=== PATIENT | male | born 1960 | race Caucasian/White ===

== ENCOUNTER 2025-07-28 09:59 | Inpatient (IN) | payer MEDICARE, MEDICAID ==
[~2025-07-28] VITALS: Ht 152.4 cm; Wt 89.9 kg
[2025-07-28] MEDS ORDERED: HEPARIN 100 UNITS/1 ML VIAL IVF ONE (11:00)
[2025-07-28] MEDS: ASPIRIN 325MG EC TABLET PO ONE (11:02)
[2025-07-28 11:13] LABS: BASOPHILS % 0.3 % (0.0-2.0); EOSINOPHILS % 0.5 % (0.0-5.0); HEMATOCRIT. 43.5 % (42.0-52.0); HEMOGLOBIN. 14.9 g/dL (14.0-18.0); LYMPHOCYTES % 14.4 % (20.0-50.0); MEAN PLATELET VOLUME 7.8 fl (7.4-10.4); MONOCYTES % 5.7 % (2.0-8.0); NEUTROPHILS % 79.1 % (40.0-76.0); PLATELET 269 x1000/uL (130-400); RED BLOOD CELL COUNT 4.78 mill/uL (4.7-6.1); RED CELL DISTRIBUTION WIDTH 13.1 % (11.6-14.6)
[2025-07-28] MEDS: HEPARIN 5000 UNITS/ML VIAL IV SCH (11:27)
[2025-07-28] MEDS: CLOPIDOGREL 75MG TABLET PO ONE (11:27)
[2025-07-28] MEDS: NITROGLYCERIN OINT 1GM/INCH UDPKT TD ONE (11:27)
[2025-07-28 11:30] LABS: CREATININE 1.1 mg/dL (0.6-1.3)
[2025-07-28 11:31] LABS: UREA NITROGEN BLOOD 15 mg/dL (9-23)
[2025-07-28 11:48] LABS: TROPONIN I HIGH SENSITIVITY 2007 ng/L (3.0-53)
[2025-07-28 12:58] LABS: TROPONIN I HIGH SENSITIVITY 9127 ng/L (3.0-53)
[2025-07-28] MEDS: MORPHINE SULFATE 10 MG/ML INJ (NOT FOR IM USE) IV ONE (15:11)
[2025-07-28 16:00] VITALS: BP 110/68; PULSE 78; RESP 18; TEMP 36.5; O2SAT 100
[2025-07-28] MEDS ORDERED: LOSA50TA41 PO (16:19)
[2025-07-28] MEDS ORDERED: HYDR25TA PO (16:19)
[2025-07-28] MEDS ORDERED: HEPARIN 25,000 UNITS PREMIX 250 ML IV PRN (16:30)
[2025-07-28] MEDS ORDERED: ONDANSETRON HCL 4MG/2ML INJ IV PRN (16:30)
[2025-07-28 16:50] VITALS: BP 110/68; PULSE 78; RESP 18; TEMP 36.5292
[2025-07-28] MEDS: ASPIRIN 81MG TABLET PO SCH (17:47)
[2025-07-28 18:44] LABS: TRIGLYCERIDE 225 mg/dL (0-150)
[2025-07-28 18:45] LABS: LDL CHOLESTEROL 131 mg/dL (5-100)
[2025-07-28 18:46] LABS: INR 1.0
[2025-07-28 18:49] LABS: T4 FREE 1.23 ng/dL (0.89-1.76)
[2025-07-28 18:59] LABS: TROPONIN I HIGH SENSITIVITY 45292 ng/L (3.0-53)
[2025-07-28] MEDS: HEPARIN 25,000 UNITS PREMIX 250 ML IV SCH (19:24)
[2025-07-28] MEDS: ACETAMINOPHEN 325MG TABLET PO PRN (19:38)
[2025-07-28 20:00] VITALS: BP_SYST 127; BP_SYST 128; BP_DIAS 65; BP_DIAS 74; PULSE 74; PULSE 76; RESP 17; RESP 19; TEMP 36.4; TEMP 36.7; O2SAT 97; O2SAT 98
[2025-07-28] MEDS: ATORVASTATIN CALCIUM 40MG TABLET PO SCH (21:23)
[2025-07-29 04:00] VITALS: BP 108/68; PULSE 68; RESP 17; TEMP 36.9; O2SAT 97
[2025-07-29] MEDS: HEPARIN BOLUS PRN aPTT <30 IV (04:04)
[2025-07-29 07:15] LABS: BASOPHILS % 0.2 % (0.0-2.0); EOSINOPHILS % 0.6 % (0.0-5.0); HEMATOCRIT. 44.6 % (42.0-52.0); HEMOGLOBIN. 15.3 g/dL (14.0-18.0); LYMPHOCYTES % 17.0 % (20.0-50.0); MEAN PLATELET VOLUME 8.0 fl (7.4-10.4); MONOCYTES % 7.9 % (2.0-8.0); NEUTROPHILS % 74.3 % (40.0-76.0); PLATELET 258 x1000/uL (130-400); RED BLOOD CELL COUNT 4.92 mill/uL (4.7-6.1); RED CELL DISTRIBUTION WIDTH 13.0 % (11.6-14.6)
[2025-07-29 07:47] LABS: CREATININE 1.0 mg/dL (0.6-1.3)
[2025-07-29 07:48] LABS: UREA NITROGEN BLOOD 10 mg/dL (9-23)
[2025-07-29 08:00] VITALS: BP 128/68; PULSE 90; RESP 20; TEMP 37.2; O2SAT 99
[2025-07-29 08:21] LABS: CLARITY URINE CLEAR (CLEAR); COLOR URINE YELLOW (YELLOW); GLUCOSE URINE NEGATIVE (NEGATIVE); KETONES URINE NEGATIVE (NEGATIVE); LEUKOCYTE ESTERASE URINE NEGATIVE (NEGATIVE); NITRITE URINE NEGATIVE (NEGATIVE); OCCULT BLOOD URINE NEGATIVE (NEGATIVE); PH URINE 7.5 (4.5-8.0); PROTEIN URINE NEGATIVE (NEGATIVE); SPECIFIC GRAVITY URINE 1.015 (1.005-1.030); UROBILINOGEN URINE 1.0 E.U./dL (0.2-1.0)
[2025-07-29 08:37] LABS: *AMPHETAMINES SCREEN URINE NEGATIVE (NEGATIVE); *BARBITURATES SCREEN URINE NEGATIVE (NEGATIVE); *BENZODIAZEPINES SCREEN URINE NEGATIVE (NEGATIVE); *COCAINE SCREEN URINE NEGATIVE (NEGATIVE); CANNABINOID URINE SCREEN NEGATIVE (NEGATIVE); ECSTASY MDMA SCREEN URINE NEGATIVE (NEGATIVE); METHADONE URINE SCREEN NEGATIVE (NEGATIVE); OPIATES URINE SCREEN NEGATIVE (NEGATIVE); PHENCYCLIDINE URINE SCREEN NEGATIVE (NEGATIVE)
[2025-07-29] MEDS: COLCHICINE 0.6MG TABLET PO SCH (09:39)
[2025-07-29] MEDS: PANTOPRAZOLE SODIUM 40 MG/VIAL IV SCH (09:39)
[2025-07-29] MEDS: LOSARTAN 50 MG TABLET PO SCH (09:40)
[2025-07-29] MEDS: HYDROCHLOROTHIAZIDE 25MG TABLET PO SCH (09:40)
[2025-07-29 12:00] VITALS: BP 126/73; PULSE 101; RESP 30; TEMP 37.2; O2SAT 97
[2025-07-29] MEDS: HYDROCODONE/ACETAMINOPHEN 5/325MG TABLET PO NR (13:08)
[2025-07-29 16:00] VITALS: BP 108/53; PULSE 100; RESP 27; TEMP 38.2; O2SAT 95
[2025-07-29] MEDS: ACETAMINOPHEN 325MG TABLET PO PRN (17:08)
[2025-07-29] MEDS: HEPARIN BOLUS PRN aPTT 30-44 IV (19:22)
[2025-07-29 20:16] VITALS: BP 103/69; PULSE 92; RESP 20; TEMP 37.9; O2SAT 94
[2025-07-30 00:17] VITALS: BP 112/68; PULSE 88; RESP 23; TEMP 37.3; O2SAT 97
[2025-07-30 04:00] VITALS: BP 112/79; PULSE 81; RESP 16; TEMP 36.9; O2SAT 97
[2025-07-30] MEDS: HYDROCODONE/ACETAMINOPHEN 10/325MG TABLET PO PRN (06:38)
[2025-07-30 08:00] VITALS: BP 113/76; PULSE 87; RESP 19; TEMP 36.8; O2SAT 97
[2025-07-30] MEDS ORDERED: IODIXANOL 320MG/ML 100 ML BOTTLE IV ONE (08:24)
[2025-07-30] MEDS ORDERED: LIDOCAINE HCL 1% 20ML VIAL ONE (08:28)
[2025-07-30] MEDS ORDERED: HEPARIN 1000 UNITS/ML 10ML ONE (08:28)
[2025-07-30] MEDS ORDERED: VERAPAMIL HCL 2.5 MG/1 ML 2ML VIAL IV ONE (08:30)
[2025-07-30 08:40] LABS: BASOPHILS % 0.3 % (0.0-2.0); EOSINOPHILS % 0.1 % (0.0-5.0); HEMATOCRIT. 45.7 % (42.0-52.0); HEMOGLOBIN. 15.4 g/dL (14.0-18.0); LYMPHOCYTES % 16.5 % (20.0-50.0); MEAN PLATELET VOLUME 7.9 fl (7.4-10.4); MONOCYTES % 7.8 % (2.0-8.0); NEUTROPHILS % 75.3 % (40.0-76.0); PLATELET 240 x1000/uL (130-400); RED BLOOD CELL COUNT 5.03 mill/uL (4.7-6.1); RED CELL DISTRIBUTION WIDTH 13.4 % (11.6-14.6)
[2025-07-30 08:52] LABS: CREATININE 1.2 mg/dL (0.6-1.3)
[2025-07-30 08:53] LABS: UREA NITROGEN BLOOD 13 mg/dL (9-23)
[2025-07-30] MEDS ORDERED: FENTANYL CITRATE/PF 50MCG/ML 2ML VIAL ONE (09:23)
[2025-07-30] MEDS ORDERED: MIDAZOLAM HCL 2 MG/2 ML VIAL ONE (09:23)
[2025-07-30] MEDS ORDERED: DIPHENHYDRAMINE 50MG/ML VIAL ONE (09:44)
[2025-07-30] MEDS ORDERED: ATROPINE SULFATE 1MG/10ML SYR IV PRN (10:45)
[2025-07-30] MEDS ORDERED: NALOXONE HCL 0.4MG/ML VIAL IV PRN (10:45)
[2025-07-30 12:00] VITALS: BP 118/84; PULSE 78; RESP 19; TEMP 36.9; O2SAT 98
[2025-07-30] MEDS: KCL 20MEQ/100ML PREMIX 100 ML IV SCH (12:51)
[2025-07-30 16:00] VITALS: BP 118/76; PULSE 92; RESP 20; TEMP 36.7; O2SAT 97
[2025-07-30] MEDS: POTASSIUM CHLORIDE 20MEQ TABLET SR PO SCH (16:53)
[2025-07-30] MEDS: ENOXAPARIN 100MG/ML SYR SUBCUT SCH (19:45)
[2025-07-30 20:00] VITALS: BP 111/78; PULSE 94; RESP 17; TEMP 37.2; O2SAT 97
[2025-07-30 22:14] LABS: INR 1.1
[2025-07-31] VITALS (7 sets, daily range): BP systolic 110–132; BP diastolic 73–86; PULSE 79–93; RESP 15–21; TEMP 36.6–37.4; O2SAT 95–99
[2025-07-31 06:41] LABS: BASOPHILS % 0.3 % (0.0-2.0); EOSINOPHILS % 1.2 % (0.0-5.0); HEMATOCRIT. 44.9 % (42.0-52.0); HEMOGLOBIN. 15.5 g/dL (14.0-18.0); LYMPHOCYTES % 21.9 % (20.0-50.0); MEAN PLATELET VOLUME 7.5 fl (7.4-10.4); MONOCYTES % 10.6 % (2.0-8.0); NEUTROPHILS % 66.0 % (40.0-76.0); PLATELET 249 x1000/uL (130-400); RED BLOOD CELL COUNT 4.95 mill/uL (4.7-6.1); RED CELL DISTRIBUTION WIDTH 13.0 % (11.6-14.6)
[2025-07-31 06:53] LABS: CREATININE 1.1 mg/dL (0.6-1.3); UREA NITROGEN BLOOD 15 mg/dL (9-23)
[2025-07-31] MEDS ORDERED: HEPARIN 25,000 UNITS PREMIX 250 ML IV SCH (07:00)
[2025-07-31] MEDS: FAMOTIDINE 20MG/2ML VIAL IV SCH (09:14)
[2025-07-31] MEDS: ENOXAPARIN 100MG/ML SYR SUBCUT SCH (09:14)
[2025-07-31] MEDS: POTASSIUM CHLORIDE 20MEQ TABLET SR PO NR (09:55)
[2025-08-01 00:10] VITALS: BP 118/71; PULSE 82; RESP 19; TEMP 37; O2SAT 94
[2025-08-01 03:51] VITALS: BP 106/72; PULSE 77; RESP 19; TEMP 36.6; O2SAT 97
[2025-08-01 07:59] VITALS: BP 111/62; PULSE 76; RESP 17; TEMP 36.8; O2SAT 93
[2025-08-01 12:00] VITALS: BP 120/80; PULSE 90; RESP 20; TEMP 36.9; O2SAT 96
[2025-08-01 16:00] VITALS: BP 127/84; PULSE 96; RESP 20; TEMP 36.7; O2SAT 96
[2025-08-01] MEDS: DEXT 5%/0.45% NACL KCL 20MEQ/L 1,000 ML IV SCH (19:09)
[2025-08-01 20:00] VITALS: RESP 22; TEMP 36.6; O2SAT 95
[2025-08-01] MEDS: CHLORHEXIDINE GLUCONATE 4% EXTERNAL USE TOP SCH (21:43)
[2025-08-01 21:56] LABS: BASOPHILS % 0.3 % (0.0-2.0); EOSINOPHILS % 3.0 % (0.0-5.0); HEMATOCRIT. 45.2 % (42.0-52.0); HEMOGLOBIN. 15.6 g/dL (14.0-18.0); LYMPHOCYTES % 27.2 % (20.0-50.0); MEAN PLATELET VOLUME 7.9 fl (7.4-10.4); MONOCYTES % 10.8 % (2.0-8.0); NEUTROPHILS % 58.7 % (40.0-76.0); PLATELET 349 x1000/uL (130-400); RED BLOOD CELL COUNT 5.02 mill/uL (4.7-6.1); RED CELL DISTRIBUTION WIDTH 12.8 % (11.6-14.6)
[2025-08-01 22:14] LABS: CREATININE 1.1 mg/dL (0.6-1.3)
[2025-08-01 22:15] LABS: UREA NITROGEN BLOOD 12 mg/dL (9-23)
[2025-08-02] VITALS (25 sets, daily range): BP systolic 102–130; BP diastolic 53–90; PULSE 76–101; RESP 0–29; TEMP 35.8–37.3; O2SAT 89–99
[2025-08-02] MEDS ORDERED: AMINOCAPROIC ACID 5,000 MG in SODIUM CHLORIDE 0.9% 250 ML IV PRN (05:00)
[2025-08-02] MEDS ORDERED: NICARDIPINE 50 MG in NS 250 ML IV PRN (05:00)
[2025-08-02] MEDS ORDERED: DEL NIDO CARDIOPLEGIA 1,000 ML (PREMIX) IV SCH (05:00)
[2025-08-02] MEDS ORDERED: NOREPINEPHRINE 8 MG in DEXT 5% WATER 250 ML IV PRN (05:00)
[2025-08-02] MEDS ORDERED: DOBUTAMINE 250 MG/250 ML PREMIX IV PRN (05:00)
[2025-08-02] MEDS ORDERED: DEL NIDO CARDIOPLEGIA 1,000 ML (PREMIX) IV PRN (05:00)
[2025-08-02] MEDS ORDERED: PAPAVERINE HCL 180MG in SODIUM CHLORIDE 0.9% 24ML IV PRN (05:00)
[2025-08-02] MEDS ORDERED: EPINEPHRINE 5 MG in DEXT 5% WATER 250 ML IV PRN (05:00)
[2025-08-02] MEDS ORDERED: NOREPINEPHRINE 8MG/250ML PMX 250ML IV PRN (05:00)
[2025-08-02] MEDS ORDERED: NICARDIPINE 40 MG/200 ML PREMIX 200 ML IV PRN (05:00)
[2025-08-02] MEDS: CEFAZOLIN 2,000 MG in DEXT 5% WATER 100 ML IV SCH (05:00)
[2025-08-02] MEDS: VANCOMYCIN 1 G/200 ML PREMIX IV SCH (05:00)
[2025-08-02] MEDS ORDERED: POLYMYXIN B SULFATE 500000 UNITS/VIAL ONE (06:17)
[2025-08-02] MEDS ORDERED: THROMBIN (BOVINE) 5000 UNITS/VIAL TOP ONE (06:17)
[2025-08-02] MEDS ORDERED: SKIN ADHESIVE 0.7 GM EA TOP ONE (06:17)
[2025-08-02] MEDS ORDERED: NITROGLYCERIN 50MG PREMIX 250 ML IV ONE (06:23)
[2025-08-02] MEDS ORDERED: PROPOFOL 10MG/ML 100ML 100 ML IV ONE (06:31)
[2025-08-02] MEDS ORDERED: DEXMEDETOMIDINE 250 ML IV ONE (06:32)
[2025-08-02 06:35] LABS: BASOPHILS % 0.5 % (0.0-2.0); EOSINOPHILS % 3.6 % (0.0-5.0); HEMATOCRIT. 45.6 % (42.0-52.0); HEMOGLOBIN. 15.7 g/dL (14.0-18.0); LYMPHOCYTES % 30.9 % (20.0-50.0); MEAN PLATELET VOLUME 8.0 fl (7.4-10.4); MONOCYTES % 11.5 % (2.0-8.0); NEUTROPHILS % 53.5 % (40.0-76.0); PLATELET 312 x1000/uL (130-400); RED BLOOD CELL COUNT 5.07 mill/uL (4.7-6.1); RED CELL DISTRIBUTION WIDTH 12.8 % (11.6-14.6)
[2025-08-02 06:36] LABS: INR 1.1
[2025-08-02] MEDS ORDERED: PROPOFOL 200MG/20ML VIAL IV ONE (06:36)
[2025-08-02] MEDS: CHLORHEXIDINE GLUCONATE 4% EXTERNAL USE TOP SCH (06:36)
[2025-08-02] MEDS ORDERED: HEPARIN 1000 UNITS/ML 10ML ONE ×3 (06:36→10:12)
[2025-08-02] MEDS ORDERED: MIDAZOLAM HCL 2 MG/2 ML VIAL ONE ×2 (06:37→13:00)
[2025-08-02] MEDS ORDERED: LIDOCAINE HCL 1% 10 MG/ML 10ML VIAL ONE (06:37)
[2025-08-02] MEDS ORDERED: ESMOLOL HCL 10MG/ML 10ML VIAL IV ONE (06:37)
[2025-08-02] MEDS ORDERED: FENTANYL CITRATE/PF 50MCG/ML 5ML VIAL ONE (06:37)
[2025-08-02] MEDS ORDERED: AMINOCAPROIC ACID 250 MG/ML 20ML VIAL ONE ×2 (06:38→10:12)
[2025-08-02 06:41] LABS: CREATININE 1.1 mg/dL (0.6-1.3)
[2025-08-02 06:42] LABS: UREA NITROGEN BLOOD 14 mg/dL (9-23)
[2025-08-02 06:43] LABS: ASPARTATE AMINOTRANSFERASE 34 IU/L (<34)
[2025-08-02] MEDS ORDERED: ROCURONIUM BROMIDE 10MG/ML VIAL 5ML IV ONE ×2 (06:43→06:54)
[2025-08-02 06:44] LABS: BILIRUBIN TOTAL 0.8 mg/dL (0.1-1.0); PROTEIN TOTAL 7.2 g/dL (6.0-8.3)
[2025-08-02] MEDS ORDERED: SEVOFLURANE 250 ML LIQUID INH ONE (07:18)
[2025-08-02] MEDS ORDERED: LIDOCAINE HCL 2% 5ML SYRINGE IV ONE (10:12)
[2025-08-02] MEDS ORDERED: SODIUM BICARBONATE 8.4% 50MEQ/50ML SYR IV ONE (10:12)
[2025-08-02] MEDS ORDERED: PHENYLEPHRINE HCL 10MG/ML 1ML IV ONE (10:12)
[2025-08-02] MEDS ORDERED: MANNITOL 20% (20GM/100ML) BAG 500ML PREMIX IV ONE (10:12)
[2025-08-02] MEDS ORDERED: MAGNESIUM SULFATE 5GM/10ML VIAL IV ONE (10:12)
[2025-08-02] MEDS ORDERED: ALBUMIN HUMAN 25GM/100ML (25%) IV ONE (10:12)
[2025-08-02] MEDS ORDERED: POTASSIUM CHLORIDE 40MEQ/20ML INJ IV ONE (10:12)
[2025-08-02] MEDS ORDERED: CALCIUM CHLORIDE 1GM/10ML SYR IV ONE ×2 (10:12→10:15)
[2025-08-02] MEDS ORDERED: HEPARIN 10,000 UNITS/ML VIAL ONE (10:12)
[2025-08-02] MEDS ORDERED: FUROSEMIDE 20MG/2ML VIAL ONE (10:12)
[2025-08-02] MEDS ORDERED: ACETAMINOPHEN 1000MG/100ML 100 ML IV ONE (10:37)
[2025-08-02] MEDS ORDERED: PROTAMINE SULFATE 10MG/ML VIAL 25ML IV ONE ×2 (11:02→12:52)
[2025-08-02] MEDS ORDERED: CEFAZOLIN SODIUM 1000MG/VIAL ONE (12:08)
[2025-08-02] MEDS ORDERED: ALBUMIN HUMAN 12.5G/250ML (5%) IV ONE ×2 (13:35→14:15)
[2025-08-02] MEDS ORDERED: ONDANSETRON HCL 4MG/2ML INJ ONE (14:18)
[2025-08-02 14:47] LABS: HEMATOCRIT. 36.3 % (42.0-52.0); HEMOGLOBIN. 12.3 g/dL (14.0-18.0); MEAN PLATELET VOLUME 8.0 fl (7.4-10.4); PLATELET 199 x1000/uL (130-400); RED BLOOD CELL COUNT 4.02 mill/uL (4.7-6.1); RED CELL DISTRIBUTION WIDTH 12.7 % (11.6-14.6)
[2025-08-02 14:49] LABS: CREATININE 1.2 mg/dL (0.6-1.3)
[2025-08-02 14:50] LABS: UREA NITROGEN BLOOD 15 mg/dL (9-23)
[2025-08-02 14:51] LABS: ASPARTATE AMINOTRANSFERASE 49 IU/L (<34); PHOSPHORUS 2.9 mg/dL (2.5-4.9)
[2025-08-02 14:52] LABS: BILIRUBIN TOTAL 0.8 mg/dL (0.1-1.0); PROTEIN TOTAL 5.6 g/dL (6.0-8.3)
[2025-08-02] MEDS ORDERED: DEXTROSE 50% WATER 50ML SYRINGE IV PRN ×2 (15:00)
[2025-08-02] MEDS: BLOOD SUGAR DIAGNOSTIC STRIP TEST SCH (15:00)
[2025-08-02] MEDS ORDERED: DOPAMINE 400MG/250ML PREMIX 250 ML IV PRN (15:45)
[2025-08-02] MEDS: PROPOFOL 10MG/ML 100ML 100 ML IV PRN (15:47)
[2025-08-02] MEDS: DOPAMINE 400 MG PREMIX 250 ML IV PRN (15:48)
[2025-08-02] MEDS: DEXMEDETOMIDINE 100 ML IV PRN (15:48)
[2025-08-02] MEDS: INSULIN REGULAR 100U/100ML PMX 100 ML IV SCH ×2 (15:49→23:23)
[2025-08-02 15:54] LABS: BG BASE EXCESS 1.1 mmol/L (-2.0-3.0); BG CARBOXYHEMOGLOBIN 0.9 % (0.5-1.5); BG DEOXYHEMOGLOBIN 0.9 % (0.0-5.0); BG FRACTION INSPIRED OXYGEN 100; BG HCO3 ACT 24.9 mmol/L (21.0-28.0); BG METHEMOGLOBIN 0.1 % (0.5-1.5); BG OXYGEN SATURATION 99.1 % (94.0-98.0); BG OXYHEMOGLOBIN 98.1 % (94.0-98.0); BG PCO2 37.1 mmHg (35.0-48.0); BG PEEP (cmH2O) 5.0 cmH2O; BG PH 7.445 (7.350-7.450); BG PO2 207.1 mmHg (83.0-108.0); BG SAMPLE SITE ALINE; BG TIDAL VOLUME(mL) 550.0 mL; BG TOTAL HEMOGLOBIN 12.7 g/dL (13.5-17.5); BG VENT MODE VENT - AC; BG VENT RATE 16.0 set
[2025-08-02] MEDS ORDERED: CALCIUM CHLORIDE 3,000 MG in DEXT 5% WATER 250 ML IV PRN (16:30)
[2025-08-02] MEDS ORDERED: CALCIUM CHLORIDE 5,000 MG in DEXT 5% WATER 500 ML IV PRN (16:30)
[2025-08-02] MEDS ORDERED: SODIUM CHLORIDE 0.9% 500 ML IV PRN (16:30)
[2025-08-02] MEDS ORDERED: MAGNESIUM HYDROXIDE 400MG/5ML 30ML UDC PO PRN (16:30)
[2025-08-02] MEDS ORDERED: ALBUMIN HUMAN 25GM/100ML (25%) IV PRN (16:30)
[2025-08-02] MEDS ORDERED: ONDANSETRON HCL 4MG/2ML INJ IV PRN (16:30)
[2025-08-02] MEDS ORDERED: ALBUMIN HUMAN 12.5G/250ML (5%) IV PRN (16:30)
[2025-08-02 17:45] LABS: BG BASE EXCESS 1.3 mmol/L (-2.0-3.0); BG CARBOXYHEMOGLOBIN 1.0 % (0.5-1.5); BG DEOXYHEMOGLOBIN 2.1 % (0.0-5.0); BG FRACTION INSPIRED OXYGEN 40; BG HCO3 ACT 24.8 mmol/L (21.0-28.0); BG METHEMOGLOBIN 0.0 % (0.5-1.5); BG OXYGEN SATURATION 97.9 % (94.0-98.0); BG OXYHEMOGLOBIN 96.9 % (94.0-98.0); BG PCO2 35.5 mmHg (35.0-48.0); BG PEEP (cmH2O) 5.0 cmH2O; BG PH 7.462 (7.350-7.450); BG PO2 105.5 mmHg (83.0-108.0); BG SAMPLE SITE ALINE; BG TIDAL VOLUME(mL) 550.0 mL; BG TOTAL HEMOGLOBIN 12.7 g/dL (13.5-17.5); BG VENT MODE VENT - AC; BG VENT RATE 16.0 set
[2025-08-02] MEDS: CEFAZOLIN 1000MG PREMIX 50 ML IV SCH (18:14)
[2025-08-02 18:42] LABS: BAND% 15.0 % (1.0-6.0); LYMPHOCYTES % MANUAL 14.0 % (20.0-50.0); METAMYELOCYTES % 2.0 % (0-0); MONOCYTES % MANUAL 4.0 % (2.0-8.0); NEUTROPHILS % MANUAL 65.0 % (45.0-75.0)
[2025-08-02 18:43] LABS: PLATELET ESTIMATE NORMAL
[2025-08-02 20:06] LABS: BG BASE EXCESS 1.2 mmol/L (-2.0-3.0); BG CARBOXYHEMOGLOBIN 1.2 % (0.5-1.5); BG DEOXYHEMOGLOBIN 2.7 % (0.0-5.0); BG FRACTION INSPIRED OXYGEN 40; BG HCO3 ACT 24.6 mmol/L (21.0-28.0); BG METHEMOGLOBIN 0.3 % (0.5-1.5); BG OXYGEN SATURATION 97.3 % (94.0-98.0); BG OXYHEMOGLOBIN 95.8 % (94.0-98.0); BG PCO2 35.2 mmHg (35.0-48.0); BG PEEP (cmH2O) 5.0 cmH2O; BG PH 7.463 (7.350-7.450); BG PO2 91.7 mmHg (83.0-108.0); BG SAMPLE SITE ALINE; BG TOTAL HEMOGLOBIN 12.6 g/dL (13.5-17.5); BG VENT MODE VENT - CPAP
[2025-08-02 20:12] LABS: PLATELET 218 x1000/uL (130-400); RED BLOOD CELL COUNT 3.85 mill/uL (4.7-6.1); RED CELL DISTRIBUTION WIDTH 12.8 % (11.6-14.6)
[2025-08-02 20:25] LABS: CREATININE 1.4 mg/dL (0.6-1.3)
[2025-08-02 20:26] LABS: UREA NITROGEN BLOOD 17 mg/dL (9-23)
[2025-08-02 20:28] LABS: PHOSPHORUS 2.2 mg/dL (2.5-4.9)
[2025-08-02 20:41] LABS: INR 1.1
[2025-08-02] MEDS: IPRATROPIUM/ALBUTEROL 0.5-3(2.5)MG/3ML NEB HHN SCH (20:43)
[2025-08-02] MEDS: ALBUMIN HUMAN 12.5G/250ML (5%) IV SCH (20:46)
[2025-08-02] MEDS: VANCOMYCIN 1.75GM PMX (XELLIA) 350 ML IV NR (20:47)
[2025-08-02] MEDS: BACITRACIN 14GM TUBE TOP SCH (21:00)
[2025-08-02] MEDS: DOCUSATE SODIUM 100MG CAPSULE PO SCH (21:28)
[2025-08-02] MEDS: OXYCODONE HCL/ACETAMINOPHEN 5/325MG TABLET PO PRN (21:28)
[2025-08-02 21:41] LABS: BG BASE EXCESS -0.4 mmol/L (-2.0-3.0); BG CARBOXYHEMOGLOBIN 1.1 % (0.5-1.5); BG DEOXYHEMOGLOBIN 2.2 % (0.0-5.0); BG FLOW(L/min) 40.00 L/min; BG FRACTION INSPIRED OXYGEN 5; BG HCO3 ACT 23.3 mmol/L (21.0-28.0); BG METHEMOGLOBIN 0.3 % (0.5-1.5); BG OXYGEN SATURATION 97.8 % (94.0-98.0); BG OXYHEMOGLOBIN 96.4 % (94.0-98.0); BG PCO2 35.0 mmHg (35.0-48.0); BG PH 7.441 (7.350-7.450); BG PO2 101.7 mmHg (83.0-108.0); BG SAMPLE SITE ALINE; BG TOTAL HEMOGLOBIN 12.1 g/dL (13.5-17.5); BG VENT MODE COOL AEROSOL
[2025-08-03] VITALS (79 sets, daily range): BP systolic 106–136; BP diastolic 72–86; PULSE 92–111; RESP 0–35; TEMP 36.7–37.1; O2SAT 93–100
[2025-08-03 04:40] LABS: BASOPHILS % 0.1 % (0.0-2.0); EOSINOPHILS % 0.0 % (0.0-5.0); HEMATOCRIT. 32.3 % (42.0-52.0); HEMOGLOBIN. 10.9 g/dL (14.0-18.0); LYMPHOCYTES % 9.1 % (20.0-50.0); MEAN PLATELET VOLUME 7.9 fl (7.4-10.4); MONOCYTES % 9.7 % (2.0-8.0); NEUTROPHILS % 81.1 % (40.0-76.0); PLATELET 228 x1000/uL (130-400); RED BLOOD CELL COUNT 3.58 mill/uL (4.7-6.1); RED CELL DISTRIBUTION WIDTH 12.7 % (11.6-14.6)
[2025-08-03 04:54] LABS: CREATININE 1.2 mg/dL (0.6-1.3); TRIGLYCERIDE 87 mg/dL (0-150); UREA NITROGEN BLOOD 16 mg/dL (9-23)
[2025-08-03 04:56] LABS: PHOSPHORUS 2.8 mg/dL (2.5-4.9)
[2025-08-03] MEDS: OXYCODONE HCL/ACETAMINOPHEN 5/325MG TABLET PO PRN (05:39)
[2025-08-03] MEDS: KCL 10MEQ/50ML PREMIX 150 ML IV PRN (05:53)
[2025-08-03] MEDS: METOPROLOL TARTRATE 25MG TABLET PO SCH (08:41)
[2025-08-03 12:38] LABS: CREATININE 1.2 mg/dL (0.6-1.3); UREA NITROGEN BLOOD 15 mg/dL (9-23)
[2025-08-03] MEDS ORDERED: KCL 20MEQ/100ML PREMIX 100 ML IV SCH (14:00)
[2025-08-03] MEDS: CALCIUM GLUCONATE 1GM PREMIX 50 ML IV SCH ×3 (15:06→21:05)
[2025-08-03] MEDS: KCL 20MEQ/100ML PREMIX 100 ML IV SCH (16:33)
[2025-08-03 19:04] LABS: PLATELET 225 x1000/uL (130-400); RED BLOOD CELL COUNT 3.47 mill/uL (4.7-6.1); RED CELL DISTRIBUTION WIDTH 12.9 % (11.6-14.6)
[2025-08-03 19:24] LABS: CREATININE 1.1 mg/dL (0.6-1.3); UREA NITROGEN BLOOD 13 mg/dL (9-23)
[2025-08-03] MEDS ORDERED: DEXTROSE 50% WATER 50ML SYRINGE IV PRN (20:00)
[2025-08-03] MEDS: VANCOMYCIN 1.25GM/250ML IV SCH (20:21)
[2025-08-03] MEDS: FUROSEMIDE 20MG TABLET PO SCH (20:21)
[2025-08-03] MEDS: POTASSIUM CHLORIDE 10MEQ TABLET SR PO SCH (20:21)
[2025-08-03] MEDS: MELATONIN 3MG TABLET PO SCH (20:22)
[2025-08-03] MEDS: FAMOTIDINE 20MG/2ML VIAL IV SCH (20:22)
[2025-08-03] MEDS: BLOOD SUGAR DIAGNOSTIC STRIP TEST SCH (20:28)
[2025-08-03] MEDS ORDERED: MELATONIN 3MG TABLET PO ONE (21:00)
[2025-08-03] MEDS: INSULIN LISPRO 100 UNITS/ML SUBCUT SCH (21:12)
[2025-08-04] VITALS (91 sets, daily range): BP systolic 99–145; BP diastolic 56–112; PULSE 93–115; RESP 14–52; TEMP 36.7–38.3; O2SAT 88–100
[2025-08-04 05:20] LABS: BASOPHILS % 0.2 % (0.0-2.0); EOSINOPHILS % 0.2 % (0.0-5.0); HEMATOCRIT. 31.2 % (42.0-52.0); HEMOGLOBIN. 10.6 g/dL (14.0-18.0); LYMPHOCYTES % 12.9 % (20.0-50.0); MEAN PLATELET VOLUME 8.0 fl (7.4-10.4); MONOCYTES % 10.5 % (2.0-8.0); NEUTROPHILS % 76.2 % (40.0-76.0); PLATELET 248 x1000/uL (130-400); RED BLOOD CELL COUNT 3.44 mill/uL (4.7-6.1); RED CELL DISTRIBUTION WIDTH 12.8 % (11.6-14.6)
[2025-08-04 05:33] LABS: CREATININE 1.1 mg/dL (0.6-1.3)
[2025-08-04 05:34] LABS: UREA NITROGEN BLOOD 12 mg/dL (9-23)
[2025-08-04 05:36] LABS: PHOSPHORUS 2.4 mg/dL (2.5-4.9)
[2025-08-04] MEDS ORDERED: BISACODYL 5MG TABLET PO PRN (07:00)
[2025-08-04] MEDS: MAGNESIUM 2 G PREMIX 50 ML IV NR (07:28)
[2025-08-04 10:24] LABS: CREATININE 1.1 mg/dL (0.6-1.3); UREA NITROGEN BLOOD 12 mg/dL (9-23)
[2025-08-04 10:26] LABS: PHOSPHORUS 2.4 mg/dL (2.5-4.9)
[2025-08-04] MEDS: POTASSIUM CHLORIDE 10MEQ TABLET SR PO NR (10:26)
[2025-08-04] MEDS: FUROSEMIDE 20MG/2ML VIAL IVP NR (10:26)
[2025-08-04] MEDS: VANCOMYCIN 1GM PMX (XELLIA) 200 ML IV SCH (11:33)
[2025-08-04] MEDS: LACTULOSE 20G/30ML UDC PO PRN (15:17)
[2025-08-04] MEDS: KCL 10MEQ/50ML PREMIX 100 ML IV PRN (22:00)
[2025-08-05] VITALS (77 sets, daily range): BP systolic 96–135; BP diastolic 60–120; PULSE 84–114; RESP 15–33; TEMP 36.6–37.7; O2SAT 90–100
[2025-08-05 05:59] LABS: HEMATOCRIT. 29.4 % (42.0-52.0); HEMOGLOBIN. 10.0 g/dL (14.0-18.0); MEAN PLATELET VOLUME 7.9 fl (7.4-10.4); PLATELET 279 x1000/uL (130-400); RED BLOOD CELL COUNT 3.22 mill/uL (4.7-6.1); RED CELL DISTRIBUTION WIDTH 12.7 % (11.6-14.6)
[2025-08-05 06:01] LABS: CREATININE 0.9 mg/dL (0.6-1.3); UREA NITROGEN BLOOD 15 mg/dL (9-23)
[2025-08-05 06:03] LABS: PHOSPHORUS 2.6 mg/dL (2.5-4.9)
[2025-08-05] MEDS: KCL 10MEQ/50ML PREMIX 200 ML IV PRN (06:25)
[2025-08-05] MEDS: POTASSIUM CHLORIDE 20MEQ TABLET SR PO NR (08:20)
[2025-08-05 09:21] LABS: BAND% 16.0 % (1.0-6.0); EOSINOPHILS % MANUAL 4.0 % (0.0-5.0); LYMPHOCYTES % MANUAL 10.0 % (20.0-50.0); MONOCYTES % MANUAL 10.0 % (2.0-8.0); NEUTROPHILS % MANUAL 60.0 % (45.0-75.0)
[2025-08-05 09:22] LABS: PLATELET ESTIMATE NORMAL
[2025-08-05] MEDS: ACETAMINOPHEN 325MG TABLET PO PRN (20:44)
[2025-08-06] VITALS (65 sets, daily range): BP systolic 82–128; BP diastolic 57–105; PULSE 84–136; RESP 16–30; TEMP 36.9–37.2; O2SAT 90–100
[2025-08-06 03:39] LABS: HEMATOCRIT. 31.4 % (42.0-52.0); HEMOGLOBIN. 10.5 g/dL (14.0-18.0); MEAN PLATELET VOLUME 7.9 fl (7.4-10.4); PLATELET 353 x1000/uL (130-400); RED BLOOD CELL COUNT 3.44 mill/uL (4.7-6.1); RED CELL DISTRIBUTION WIDTH 13.3 % (11.6-14.6)
[2025-08-06 05:33] LABS: CREATININE 1.0 mg/dL (0.6-1.3)
[2025-08-06 05:34] LABS: UREA NITROGEN BLOOD 17 mg/dL (9-23)
[2025-08-06 05:36] LABS: PHOSPHORUS 2.6 mg/dL (2.5-4.9)
[2025-08-06] MEDS: METOPROLOL TARTRATE 25MG TABLET PO NR (06:52)
[2025-08-06] MEDS: POTASSIUM CHLORIDE 20MEQ TABLET SR PO NR (06:52)
[2025-08-06] MEDS: METOPROLOL TARTRATE 5MG/5ML VIAL IV ONE ×2 (09:49→10:58)
[2025-08-06] MEDS: POTASSIUM CHLORIDE 20MEQ/PACKET PO NR (12:30)
[2025-08-06 13:49] LABS: BAND% 4.0 % (1.0-6.0); EOSINOPHILS % MANUAL 4.0 % (0.0-5.0); LYMPHOCYTES % MANUAL 22.0 % (20.0-50.0); MONOCYTES % MANUAL 19.0 % (2.0-8.0); NEUTROPHILS % MANUAL 51.0 % (45.0-75.0); PLATELET ESTIMATE NORMAL
[2025-08-06] MEDS ORDERED: ATOR40TA70 MT (14:08)
[2025-08-06] MEDS ORDERED: METO25TA6 MT (14:08)
[2025-08-06] MEDS ORDERED: COLC0.6C3 MT (14:08)
[2025-08-06] MEDS ORDERED: ASPI-1497 MT (14:08)
[2025-08-06] MEDS ORDERED: METOPROLOL TARTRATE 25MG TABLET PO SCH (21:00)
== END 2025-08-06 15:00 | disposition home health service (06) | DRG 233 ==
LOC: ER 09:59 → ENRESERV 14:37 → 3WST 16:16 → CVICU 08-02 08:01
PROVIDERS: ADMIT Internal Medicine; ATTEND Internal Medicine
PROC: 4A023N7 Measurement of Cardiac Sampling and Pressure, Left Heart, Percutaneous Approach (ICD-10-PCS; 2025-07-30)
PROC: B211YZZ Fluoroscopy of Multiple Coronary Arteries using Other Contrast (ICD-10-PCS; 2025-07-30)
PROC: 4A033BC Measurement of Arterial Pressure, Coronary, Percutaneous Approach (ICD-10-PCS; 2025-07-30)
PROC: 02100Z9 Bypass Coronary Artery, One Artery from Left Internal Mammary, Open Approach (ICD-10-PCS; principal; 2025-08-02)
PROC: 021109W Bypass Coronary Artery, Two Arteries from Aorta with Autologous Venous Tissue, Open Approach (ICD-10-PCS; 2025-08-02)
PROC: 06BQ4ZZ Excision of Left Saphenous Vein, Percutaneous Endoscopic Approach (ICD-10-PCS; 2025-08-02)
PROC: 4A12XSH Monitoring of Cardiac Vascular Perfusion using Indocyanine Green Dye, External Approach (ICD-10-PCS; 2025-08-02)
PROC: B24BZZ4 Ultrasonography of Heart with Aorta, Transesophageal (ICD-10-PCS; 2025-08-02)
PROC: 5A1221Z Performance of Cardiac Output, Continuous (ICD-10-PCS; 2025-08-02)
DX: I25.10 Atherosclerotic heart disease of native coronary artery without angina pectoris (principal); I21.A1 Myocardial infarction type 2; E78.5 Hyperlipidemia, unspecified; M10.9 Gout, unspecified; Z20.822 Contact with and (suspected) exposure to COVID-19; E66.01 Morbid (severe) obesity due to excess calories; E11.42 Type 2 diabetes mellitus with diabetic polyneuropathy; K59.00 Constipation, unspecified; E11.65 Type 2 diabetes mellitus with hyperglycemia; E78.00 Pure hypercholesterolemia, unspecified; F41.9 Anxiety disorder, unspecified; I11.9 Hypertensive heart disease without heart failure; G31.9 Degenerative disease of nervous system, unspecified; I34.0 Nonrheumatic mitral (valve) insufficiency; D64.9 Anemia, unspecified; I25.2 Old myocardial infarction; Z79.899 Other long term (current) drug therapy; Z82.49 Family history of ischemic heart disease and other diseases of the circulatory system; Z87.891 Personal history of nicotine dependence; Z68.38 Body mass index [BMI] 38.0-38.9, adult
CPT/HCPCS: 31720; 36415; 36600; 71045; 80048; 80053; 80061; 80202; 80305; 81003; 82375; 82803; 82805; 82962; 83036; 83735; 84100; 84132; 84439; 84443; 84478; 84484; 85025; 85027; 85347; 86850; 86900; 86920; 87070; 87077; 87186; 87426; 93005; 93306; 93308; 93458; 93571; 93880; 93970; 94002; 94060; 94070; 94640; 94664; 94760; 97116; 97162; 97166; 97530; 97535; 98960; 99291; A4606; C1725; C1729; C1751; C1758; C1769; C1887; C1893; J0612; J0690; J1200; J1250; J1265; J1308; J1642; J1644; J1650; J1815; J1938; J2003; J2250; J2371; J2405; J2440; J2470; J2704; J2720; J3010; J3373; J3475; J3480; J3490; J7050; J7060; L3908; P9041; P9047; Q9967; A4217; J0131